=== PATIENT | male | born 1965 | race African-American/Black ===

== ENCOUNTER 2018-02-22 22:31 | Emergency (ER) | payer OTHER ==
[2018-02-22 22:54] VITALS: BP 118/63; PULSE 89; TEMP 98.2; BMI 22.1
[2018-02-22] MEDS ORDERED: ACETAMINOPHEN 325 MG TABLET (FP) PO ONE (23:09)
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
[2018-02-22] MEDS ORDERED: ACETAMINOPHEN 325 MG TABLET (FP) ONE (23:16)
[2018-02-22] MEDS ORDERED: IBUPROFEN 400 MG TABLET (FP) PO ONE (23:57)
[2018-02-23] MEDS ORDERED: IBUPROFEN 400 MG TABLET (FP) PO ONE
== END 2018-02-23 00:05 | disposition home or self-care (01) ==
LOC: JER 22:31
DX: M54.2 Cervicalgia (principal); M25.512 Pain in left shoulder; V43.52XA Car driver injured in collision with other type car in traffic accident, initial encounter; Y93.89 Activity, other specified; Y92.410 Unspecified street and highway as the place of occurrence of the external cause; F17.210 Nicotine dependence, cigarettes, uncomplicated
CPT/HCPCS: 72050-TC-FY; 99283-25

== ENCOUNTER 2021-06-17 13:51 | Emergency (ER) | payer OTHER ==
[2021-06-17 14:23] VITALS: BP 143/73; PULSE 82; TEMP 98.3; BMI 22.1
[2021-06-17] MEDS ORDERED: LIDOCAINE 5% TOPICAL PATCH TP ONE (15:25)
[2021-06-17] MEDS ORDERED: LIDOCAINE 5% TOPICAL PATCH ONE (15:26)
[2021-06-17] MEDS ORDERED: LIDOCAINE PATCH REMOVAL MC SCH (22:00)
== END 2021-06-17 15:33 | disposition home or self-care (01) ==
LOC: JERFT 13:51
DX: M54.12 Radiculopathy, cervical region (principal)
CPT/HCPCS: 99283-25

== ENCOUNTER 2022-12-03 10:59 | Emergency (ER) | payer OTHER ==
[2022-12-03 11:03] VITALS: BMI 24.2
[2022-12-03] MEDS ORDERED: FAMOTIDINE 20 MG/50 ML IVPB 20 MG/50 ML MG IVPB ONE ×2 (11:39→11:43)
[2022-12-03] MEDS ORDERED: ONDANSETRON 4 MG/2 ML VIAL IVPUSH ONE (11:39)
[2022-12-03] MEDS ORDERED: SODIUM CHLORIDE 1,000 ML IV STA ×2 (11:39→11:45)
[2022-12-03] MEDS ORDERED: ONDANSETRON 4 MG/2 ML VIAL ONE (11:43)
[2022-12-03 12:00] LABS: BASO % 0.7 % (0-2.0); EOS % 0.1 % (0-4.5); HEMATOCRIT 39.3 % (35.4-49); HEMOGLOBIN 13.5 GM/dL (11.7-16.9); LYMPH % 9.2 % (8-40); MCH 30.7 pg (25.7-33.7); MCHC 34.2 g/dl (32.0-35.9); MEAN CELL VOLUME 89.7 fl (80-96); MEAN PLT VOLUME 8.9 fl (7.5-11.1); MONO % 8.3 % (3.8-10.2); NEUT % 81.7 % (42.8-82.8); PLATELET COUNT 163 10^3/uL (134-434); RBC 4.38 M/mm3 (4.00-5.60); RDW 12.1 % (11.9-15.9); WHITE BLOOD COUNT 11.4 K/mm3 (4.0-10.0)
[2022-12-03 12:20] LABS: POTASSIUM 4.1 mmol/L (3.5-5.1)
[2022-12-03 12:22] LABS: ALBUMIN 3.5 g/dl (3.4-5.0); BLOOD UREA NITROGEN 11.6 mg/dL (7-18); CALCIUM 9.1 mg/dL (8.5-10.1)
[2022-12-03 12:26] LABS: CREATININE 1.2 mg/dL (0.55-1.3)
[2022-12-03 12:28] LABS: BILIRUBIN,TOTAL 1.2 mg/dL (0.2-1)
[2022-12-03] MEDS ORDERED: ACETAMINOPHEN 325 MG TABLET (FP) PO ONE (16:32)
[2022-12-03] MEDS ORDERED: ACETAMINOPHEN 325 MG TABLET (FP) ONE (16:33)
[2022-12-03 16:43] LABS: EPI CELLS 13 /uL (0-25.1); HYALINE CASTS 1 /uL (0-3.1); URINE APPEARANCE CLEAR; URINE BACTERIA 6 /uL (0-1359); URINE BILIRUBIN NEGATIVE (NEGATIVE); URINE COLOR DK YELLOW; URINE GLUCOSE (UA) NEGATIVE (NEGATIVE); URINE KETONE 1+ (NEGATIVE); URINE LEUK ESTERASE NEGATIVE (NEGATIVE); URINE NITRITE NEGATIVE (NEGATIVE); URINE PROTEIN 1+ (NEGATIVE); URINE RBC 35 /uL (0-23.9); URINE WBC 21 /uL (0-25.8)
[2022-12-03 19:14] VITALS: BP 127/64; PULSE 77; RESP 20; TEMP 97.4
== END 2022-12-03 19:14 | disposition home or self-care (01) ==
LOC: JER 10:59
PROC: 3E033GC Introduction of Other Therapeutic Substance into Peripheral Vein, Percutaneous Approach (ICD-10-PCS; principal; 2022-12-03)
PROC: 3E033GC Introduction of Other Therapeutic Substance into Peripheral Vein, Percutaneous Approach (ICD-10-PCS; 2022-12-03)
PROC: 3E0337Z Introduction of Electrolytic and Water Balance Substance into Peripheral Vein, Percutaneous Approach (ICD-10-PCS; 2022-12-03)
DX: R50.9 Fever, unspecified (principal); R19.7 Diarrhea, unspecified; R11.2 Nausea with vomiting, unspecified; R53.1 Weakness; Z20.822 Contact with and (suspected) exposure to COVID-19
CPT/HCPCS: 0241U-QW; 36415; 76705-TC; 80053; 81003; 83690; 85025; 87086; 93005; 93010; 99285-25

== ENCOUNTER 2022-12-06 15:55 | Inpatient (IN) | payer SELFPAY ==
[2022-12-06 16:02] VITALS: BMI 23.5
[2022-12-06] MEDS ORDERED: SODIUM CHLORIDE 0.9% 500 ML INFUS.BAG IV ONE (16:19)
[2022-12-06] MEDS ORDERED: ONDANSETRON 4 MG/2 ML VIAL IVPUSH ONE (16:19)
[2022-12-06] MEDS ORDERED: ACETAMINOPHEN 1000 MG/100 ML BAG IVPB ONE ×2 (16:24→23:35)
[2022-12-06] MEDS ORDERED: MAG HYDROX/AL HYDROX/SIMETH 30 ML UNIT-DOSE CUP PO ONE (16:24)
[2022-12-06] MEDS ORDERED: ACETAMINOPHEN INJECTION 100 ML IVPB ONE ×2 (16:44→23:36)
[2022-12-06] MEDS ORDERED: ONDANSETRON 4 MG/2 ML VIAL ONE (16:44)
[2022-12-06] MEDS ORDERED: MAG HYDROX/AL HYDROX/SIMETH 30 ML UNIT-DOSE CUP ONE (16:44)
[2022-12-06 17:22] LABS: BASO % 0.2 % (0-2.0); HEMATOCRIT 38.9 % (35.4-49); HEMOGLOBIN 13.3 GM/dL (11.7-16.9); MCH 30.7 pg (25.7-33.7); MCHC 34.3 g/dl (32.0-35.9); MEAN CELL VOLUME 89.4 fl (80-96); MEAN PLT VOLUME 8.9 fl (7.5-11.1); MONO % 2.6 % (3.8-10.2); NEUT % 93.2 % (42.8-82.8); PLATELET COUNT 207 10^3/uL (134-434); RBC 4.35 M/mm3 (4.00-5.60); RDW 12.2 % (11.9-15.9)
[2022-12-06 17:27] LABS: EPI CELLS 11 /uL (0-25.1); HYALINE CASTS 1 /uL (0-3.1); PH,URINE 5.5 (5.0-8.0); URINE APPEARANCE CLOUDY; URINE BILIRUBIN 1+ (NEGATIVE); URINE COLOR ORANGE; URINE GLUCOSE (UA) NEGATIVE (NEGATIVE); URINE KETONE TRACE (NEGATIVE); URINE LEUK ESTERASE TRACE (NEGATIVE); URINE NITRITE POSITIVE (NEGATIVE); URINE PROTEIN 2+ (NEGATIVE); URINE WBC 38 /uL (0-25.8)
[2022-12-06 17:32] LABS: POTASSIUM 4.8 mmol/L (3.5-5.1)
[2022-12-06] MEDS ORDERED: CEFTRIAXONE 1,000 MG in DEXTROSE 5%-WATER - 50 ML IVPB ONE (17:32)
[2022-12-06 17:33] LABS: CALCIUM 9.1 mg/dL (8.5-10.1)
[2022-12-06 17:34] LABS: BLOOD UREA NITROGEN 12.7 mg/dL (7-18); MAGNESIUM 1.9 mg/dL (1.8-2.4)
[2022-12-06 17:36] LABS: CREATININE 1.2 mg/dL (0.55-1.3)
[2022-12-06 17:38] LABS: BILIRUBIN,TOTAL 1.3 mg/dL (0.2-1); TOT PROT 6.6 g/dl (6.4-8.2)
[2022-12-06 17:45] LABS: ALBUMIN 2.6 g/dl (3.4-5.0)
[2022-12-06 18:03] LABS: URINE BACTERIA 3 /uL (0-1359); URINE RBC 62 /uL (0-23.9)
[2022-12-06] MEDS ORDERED: AZITHROMYCIN IVPB 500 MG in DEXTROSE 5%-WATER - 250 ML IVPB ONE (20:04)
[2022-12-06] MEDS ORDERED: AZITHROMYCIN IVPB 500 MG/250 ML BAG IVPB ONE ×2 (20:30→20:40)
[2022-12-07] MEDS ORDERED: IBUPROFEN 800 MG/8 ML IJ IVPB PRN (04:00)
[2022-12-07 07:28] LABS: BASO % 0.4 % (0-2.0); EOS % 0.1 % (0-4.5); HEMATOCRIT 33.6 % (35.4-49); HEMOGLOBIN 11.9 GM/dL (11.7-16.9); MCH 31.6 pg (25.7-33.7); MCHC 35.6 g/dl (32.0-35.9); MONO % 2.7 % (3.8-10.2); NEUT % 88.8 % (42.8-82.8); PLATELET COUNT 206 10^3/uL (134-434); RBC 3.77 M/mm3 (4.00-5.60); RDW 12.3 % (11.9-15.9); WHITE BLOOD COUNT 9.7 K/mm3 (4.0-10.0)
[2022-12-07 07:55] LABS: POTASSIUM 4.5 mmol/L (3.5-5.1)
[2022-12-07 08:06] LABS: CALCIUM 8.2 mg/dL (8.5-10.1)
[2022-12-07 08:07] LABS: ALBUMIN 2.3 g/dl (3.4-5.0); BLOOD UREA NITROGEN 12.7 mg/dL (7-18)
[2022-12-07 08:11] LABS: BILIRUBIN,TOTAL 1.1 mg/dL (0.2-1); TOT PROT 5.6 g/dl (6.4-8.2)
[2022-12-07] MEDS ORDERED: CEFTRIAXONE 1 GM in DEXTROSE 5%-WATER - 50 ML IVPB SCH (10:00)
[2022-12-07] MEDS ORDERED: FAMOTIDINE 20 MG TABLET PO SCH (10:00)
[2022-12-07] MEDS ORDERED: HEPARIN NA (PORCINE) 5,000 UNITS/ML 1ML VIAL SQ SCH (10:00)
[2022-12-07] MEDS: AZITHROMYCIN IVPB 500 MG/250 ML BAG IVPB SCH (10:19)
[2022-12-07 13:01] LABS: BILIRUBIN,DIRECT 0.6 mg/dL (0.0-0.2)
[2022-12-07] MEDS: SODIUM CHLORIDE 1,000 ML IV SCH (13:10)
[2022-12-07] MEDS: ALBUTEROL SO4 2.5/IPRATROPIUM 0.5 INH SOL 3 ML VIAL.NEB. NEB SCH ×2 (13:20→20:20)
[2022-12-07] MEDS: methylPREDNISolone NA SUCC 40 MG/1 ML VIAL IVPUSH SCH (15:38)
[2022-12-08 04:22] LABS: METHADONE, UR NEGATIVE (NEGATIVE)
[2022-12-08 04:23] LABS: COCAINE, UR NEGATIVE (NEGATIVE); OPIATES, URI NEGATIVE (NEGATIVE); URINE AMPHETAMINES NEGATIVE (NEGATIVE); URINE BARBITURATES NEGATIVE (NEGATIVE)
[2022-12-08 04:29] LABS: PHENCYCLIDINE,URINE NEGATIVE (NEGATIVE); URINE BENZODIAZEPINES NEGATIVE (NEGATIVE)
[2022-12-08] MEDS: SODIUM CHLORIDE 1,000 ML IV SCH ×2 (06:44→16:04)
[2022-12-08 07:36] LABS: HEMATOCRIT 38.1 % (35.4-49); HEMOGLOBIN 13.5 GM/dL (11.7-16.9); MCH 31.4 pg (25.7-33.7); MCHC 35.3 g/dl (32.0-35.9); MEAN PLT VOLUME 9.2 fl (7.5-11.1); PLATELET COUNT 275 10^3/uL (134-434); RBC 4.29 M/mm3 (4.00-5.60); RDW 12.5 % (11.9-15.9); WHITE BLOOD COUNT 8.7 K/mm3 (4.0-10.0)
[2022-12-08] MEDS: ALBUTEROL SO4 2.5/IPRATROPIUM 0.5 INH SOL 3 ML VIAL.NEB. NEB SCH ×3 (07:46→20:10)
[2022-12-08 07:47] LABS: POTASSIUM 4.2 mmol/L (3.5-5.1)
[2022-12-08 07:51] LABS: ALBUMIN 2.4 g/dl (3.4-5.0); BLOOD UREA NITROGEN 16.2 mg/dL (7-18); CALCIUM 8.8 mg/dL (8.5-10.1)
[2022-12-08 07:54] LABS: CREATININE 0.9 mg/dL (0.55-1.3)
[2022-12-08 07:56] LABS: BILIRUBIN,TOTAL 0.6 mg/dL (0.2-1); TOT PROT 6.1 g/dl (6.4-8.2)
[2022-12-08] MEDS: AZITHROMYCIN IVPB 500 MG/250 ML BAG IVPB SCH (09:29)
[2022-12-08] MEDS: ENOXAPARIN NA (PORCINE) 40 MG/0.4 ML DISP.SYRIN SQ SCH (09:29)
[2022-12-08] MEDS: PANTOPRAZOLE 40 MG TABLET PO SCH (11:33)
[2022-12-08] MEDS: methylPREDNISolone NA SUCC 40 MG/1 ML VIAL IVPUSH SCH (16:11)
[2022-12-08 17:08] LABS: MYCOPLASMA PNEUMONIAE,IG G AB 501 U/mL (0-99); MYCOPLASMA PNEUMONIAE,IGM AB <770 U/mL (0-769)
[2022-12-09 07:35] LABS: BASO % 0.2 % (0-2.0); EOS % 0.3 % (0-4.5); HEMATOCRIT 31.8 % (35.4-49); HEMOGLOBIN 11.2 GM/dL (11.7-16.9); LYMPH % 12.1 % (8-40); MCH 31.4 pg (25.7-33.7); MCHC 35.2 g/dl (32.0-35.9); MEAN CELL VOLUME 89.2 fl (80-96); MEAN PLT VOLUME 8.6 fl (7.5-11.1); MONO % 5.9 % (3.8-10.2); NEUT % 81.5 % (42.8-82.8); PLATELET COUNT 305 10^3/uL (134-434); RBC 3.57 M/mm3 (4.00-5.60); RDW 12.7 % (11.9-15.9); WHITE BLOOD COUNT 9.6 K/mm3 (4.0-10.0)
[2022-12-09 07:38] LABS: INR 1.24 (0.83-1.09); PROTHROMBIN TIME (PATIENT) 14.4 SEC (9.7-13.0)
[2022-12-09] MEDS: ALBUTEROL SO4 2.5/IPRATROPIUM 0.5 INH SOL 3 ML VIAL.NEB. NEB SCH ×3 (07:49→19:55)
[2022-12-09 07:54] LABS: POTASSIUM 4.2 mmol/L (3.5-5.1)
[2022-12-09 07:57] LABS: CALCIUM 8.7 mg/dL (8.5-10.1)
[2022-12-09 07:58] LABS: ALBUMIN 2.3 g/dl (3.4-5.0); BLOOD UREA NITROGEN 9.3 mg/dL (7-18)
[2022-12-09 08:00] LABS: BILIRUBIN,DIRECT 0.3 mg/dL (0.0-0.2)
[2022-12-09 08:01] LABS: CREATININE 0.9 mg/dL (0.55-1.3)
[2022-12-09 08:02] LABS: BILIRUBIN,TOTAL 0.8 mg/dL (0.2-1); TOT PROT 5.7 g/dl (6.4-8.2)
[2022-12-09] MEDS: AZITHROMYCIN IVPB 500 MG/250 ML BAG IVPB SCH (09:49)
[2022-12-09] MEDS: methylPREDNISolone NA SUCC 40 MG/1 ML VIAL IVPUSH SCH (09:49)
[2022-12-09] MEDS: PANTOPRAZOLE 40 MG TABLET PO SCH (09:49)
[2022-12-09] MEDS: ENOXAPARIN NA (PORCINE) 40 MG/0.4 ML DISP.SYRIN SQ SCH (09:49)
[2022-12-09 22:32] VITALS: RESP 17
[2022-12-10] MEDS: ALBUTEROL SO4 2.5/IPRATROPIUM 0.5 INH SOL 3 ML VIAL.NEB. NEB SCH (08:19)
[2022-12-10 08:55] LABS: HEMATOCRIT 34.2 % (35.4-49); HEMOGLOBIN 11.5 GM/dL (11.7-16.9); MCH 30.2 pg (25.7-33.7); MCHC 33.7 g/dl (32.0-35.9); MEAN CELL VOLUME 89.8 fl (80-96); MEAN PLT VOLUME 8.3 fl (7.5-11.1); PLATELET COUNT 378 10^3/uL (134-434); RBC 3.81 M/mm3 (4.00-5.60); RDW 12.9 % (11.9-15.9); WHITE BLOOD COUNT 11.4 K/mm3 (4.0-10.0)
[2022-12-10 09:09] LABS: POTASSIUM 4.9 mmol/L (3.5-5.1)
[2022-12-10 09:13] LABS: ALBUMIN 2.4 g/dl (3.4-5.0)
[2022-12-10 09:14] LABS: BLOOD UREA NITROGEN 14.8 mg/dL (7-18); CALCIUM 8.9 mg/dL (8.5-10.1)
[2022-12-10 09:17] LABS: CREATININE 0.7 mg/dL (0.55-1.3)
[2022-12-10 09:19] LABS: BILIRUBIN,TOTAL 0.7 mg/dL (0.2-1); TOT PROT 6.1 g/dl (6.4-8.2)
[2022-12-10 10:37] VITALS: BP 139/74; PULSE 85; TEMP 97.6
== END 2022-12-10 10:39 | disposition home or self-care (01) | DRG 720 ==
LOC: JER 15:55 → JERBED 22:16 → J7W 12-07 01:47
PROVIDERS: ADMIT Internal Medicine; ATTEND Internal Medicine
DX: A41.9 Sepsis, unspecified organism (principal); A48.1 Legionnaires' disease; Z86.16 Personal history of COVID-19; R74.01 Elevation of levels of liver transaminase levels; R94.5 Abnormal results of liver function studies; F17.210 Nicotine dependence, cigarettes, uncomplicated; K86.89 Other specified diseases of pancreas; R19.7 Diarrhea, unspecified; R79.89 Other specified abnormal findings of blood chemistry; R63.4 Abnormal weight loss; Z68.23 Body mass index [BMI] 23.0-23.9, adult
CPT/HCPCS: 0241U-QW; 36415; 71045-TC-FY; 71250-TC; 74177-TC; 74181-TC; 76705-TC; 80053; 80076; 80307; 81003; 82248; 82550; 82553; 82607; 82728; 82746; 82977; 83540; 83550; 83690; 83735; 85025; 85027; 85610; 86140; 86480; 86704; 86709; 86738; 86803; 87040; 87045; 87046; 87070; 87086; 87205; 87324; 87340; 87449; 87517; 87899; 93005; 93010; 94640; 99285-25; J1644; Q9967